=== PATIENT | male | born 1930 | race Caucasian/White ===

== ENCOUNTER 2019-01-14 10:51 | Emergency (ER) | payer MEDICARE, OTHER ==
[~2019-01-14] VITALS: Ht 177.8 cm; Wt 86.6 kg
[~2019-01-14 10:51] MED LIST: ADULT LOW DOSE81 MG PO; AMOXICILLIN 50500 MG PO; ASPIRIN325 PO; ATORVASTATIN CA20 MG PO; B12INJ; CELEBREX 200 M200 M1; CELEBREX 200 M200 M1 PO; CELEBREX 200 M200 MG PO; CIPRO250 M1 PO; CLONIDINE0.1 PO; COLACE100 MG PO; DOXYCYCLINE 10100 M1 PO; DUONEB 2.5-0.5 M3 ML IH; ENDUR-ACIN500 MG PO; FENOFIBRATE160 MG PO; FENOFIBRATE54 MG PO; FENOGLIDE40 MG PO; FINASTERIDE5 MG PO; FISHOIL PO; FUROSEMIDE 40 M40 MG PO; HYDROCODON-ACE1 EAC7 PO; IBUPROFEN 800800 M1 PO; IMDUR 30 MG TAB30 M1 PO; ISOSORBIDE DINI30 MG PO; KLOR-CON PO; LEVAQUIN 500 M500 M2 PO; LEVAQUIN 500 M500 MG PO; LIPITOR 20 MG T20 M1 PO; LISINOPRIL-HCT1 EAC1 PO; LISINOPRIL10 MG PO; MEDROL DOSPAK21 TA1 PO; MIRALAX17 GM PO; MUCINEX TA600 MG/TA2 PO; MULTIVITAMINS PO; NICOTINE TRANSD21 M1 TD; NICOTINE TRANSD21 M1 TOP; NORVASC5 MG PO; PERCOCET 5-3251 EACH PO; PREDNISONE 10 M10 MG PO; PREDNISONE 20 M20 MG PO; PRINIVIL20 MG PO; PRINIVIL40 MG PO; TESSALON PERLE100 MG PO; TRAMADOL 50 MG50 MG; TRICOR48 MG PO; VITAMIN B-12500 MCG PO; ZPAK PO
[2019-01-14 10:53] VITALS: BP 100/49
[2019-01-14 11:18] LABS: BE -22.4 mmol/L (-2 to +3); PO2 104.1 mmHg (75.0-100.0)
[2019-01-14 11:22] LABS: pH 7.134 (7.340-7.450)
[2019-01-14 11:23] LABS: PCO2 > 163.4 mmHg (35.0-45.0)
[2019-01-14 11:25] LABS: MCH 35.1 pg (26.0-34.0); MCHC 30.5 g/dL (28.0-37.0); MCV 115.1 fL (80.0-100.0); MPV 6.9 fl. (7.2-11.1); NUCLEATED RBCS 1 /100WBC; PLATELET COUNT* 129 thou/uL (150-400); RBC 1.28 mil/uL (4.50-6.00); RDW-CV 28.3 % (10.5-14.5)
[2019-01-14 11:29] LABS: WBC 285.1 thou/uL (4.0-11.0)
[2019-01-14 11:30] LABS: HEMATOCRIT 14.8 % (42.0-52.0); HEMOGLOBIN 4.5 gm/dL (14.0-18.0)
[2019-01-14 11:31] LABS: INR 1.4; PROTIME 13.7 Seconds (9.20-11.50)
[2019-01-14 11:32] LABS: CALCIUM 8.7 mg/dL (8.5-10.1); CREATININE 1.7 mg/dL (0.6-1.3); POTASSIUM 5.1 mmol/L (3.5-5.1)
[2019-01-14 11:33] LABS: ICTOTEST (BILI CONFIRMATORY) Negative (Negative); URINE BILIRUBIN 1+ (Negative); URINE BLOOD 3+ (Negative); URINE CLARITY CLEAR; URINE COLOR YELLOW; URINE GLUCOSE-RANDOM NEGATIVE (Negative); URINE KETONES NEGATIVE (Negative); URINE LEUKOCYTES-REFLEX NEGATIVE (Negative); URINE NITRITE-REFLEX POSITIVE (Negative); URINE PROTEIN 2+ (Negative); URINE SPECIFIC GRAVITY >= 1.030 (1.005-1.030)
[2019-01-14 11:48] LABS: SQUAMOUS 0-3 Few /LPF (0-3); URINE WBC-REFLEX 0-5 Rare /HPF (0-5)
[2019-01-14 11:50] LABS: ALBUMIN 3.1 g/dL (3.4-5.0); TOTAL BILIRUBIN 6.8 mg/dL (<0.1-1.0); TOTAL PROTEIN 5.5 g/dL (6.4-8.2)
[2019-01-14 11:57] LABS: BACTERIA-REFLEX 1-9 Few /HPF (None Seen); CASTS None Seen /LPF (None Seen); CRYSTALS None Seen /LPF (None Seen); MUCUS None Seen strn/LPF (None Seen); URINE RBC 3-10 Few /HPF (0-2)
[2019-01-14 12:15] LABS: ABSOLUTE EOSINOPHILS 2.9 thou/uL (0.0-0.7); ABSOLUTE LYMPHOCYTES 265.1 thou/uL (0.8-5.3); ABSOLUTE NEUTROPHILS 17.1 thou/uL (1.6-8.1)
[2019-01-14 12:18] LABS: ANISOCYTOSIS 2+; MACROCYTES 2+; PLATELET ESTIMATE ADEQUATE
--- NOTE | 2019-01-14 16:31 | EKG ---
[place] [address] ELECTROCARDIOGRAM REPORT Name: TESSA REYES Room: [facility]#: [id number] Admission: 01/14/19 Attend Phys: Discharge: Date of : [birth year] Report #: [id number] THIS REPORT FOR: //name// [facility] ED Test Date: 2019-01-14 Test Time: 10:56:27 Pat Name: TESSA REYES Department: Room: Gender: M [employer]: : 1930 Requested By: Kraig Estrada Order Number: [id number] MD: Franco Black Measurements Intervals [place] Rate: 70 P: 80 ME: 248 QRS: 49 QRSD: 104 T: QT: 413 QTc: 446 Interpretive Statements Sinus rhythm Prolonged ME interval Borderline low voltage, extremity leads Nonspecific T abnrm, anterolateral leads Compared to ECG 10/06/2015 15:47:48 Myocardial infarct finding no longer present Electronically Signed On 01-14-2019 16:31:08 CDT by Franco Black [email or web address] <ELECTRONICALLY SIGNED> By: Franco Black MD, [facility] 01/14/19 1631 [id number] Franco Black MD, FAC /EPI
[2019-01-16 07:38] LABS: HEMOGLOBIN 4.6 g/dL (13.0-17.7)
== END 2019-01-14 12:50 ==
LOC: M.ERS 10:51
PROVIDERS: Family Medicine
DX: A41.9 Sepsis, unspecified organism (principal); I46.9 Cardiac arrest, cause unspecified; E86.0 Dehydration; D64.9 Anemia, unspecified; I10 Essential (primary) hypertension; G47.30 Sleep apnea, unspecified; F17.210 Nicotine dependence, cigarettes, uncomplicated; Z90.49 Acquired absence of other specified parts of digestive tract; Z88.5 Allergy status to narcotic agent